=== PATIENT | female | born 1990 | race Caucasian/White ===

== ENCOUNTER 2020-09-22 16:40 | Emergency (ER) | payer OTHER, SELFPAY ==
[~2020-09-22] VITALS: Ht 165.1 cm; Wt 89.8 kg
[2020-09-22 18:06] VITALS: BP 102/71; Ht 165.1 cm; Wt 89.8 kg
== END 2020-09-22 18:50 | disposition home or self-care (01) ==
LOC: ED 16:40
DX: R05 Cough (principal); R50.9 Fever, unspecified; R53.1 Weakness; E11.9 Type 2 diabetes mellitus without complications; Z20.828 Contact with and (suspected) exposure to other viral communicable diseases
CPT/HCPCS: U0003